=== PATIENT | female | born 1985 | race African-American/Black ===

== ENCOUNTER 2021-02-01 11:36 | Inpatient (IN) | payer BC ==
[~2021-02-01] VITALS: Ht 172.7 cm; Wt 91.4 kg
[2021-02-01] VITALS (33 sets, daily range): BP systolic 90–157; BP diastolic 40–89; PULSE 63–100; TEMP 97.6–97.7
[2021-02-01] MEDS ORDERED: PRENATAL TABLET PO (14:47)
[2021-02-01] MEDS ORDERED: VALTREX1 GM PO (14:47)
[2021-02-01 15:23] LABS: BASO % 0.4 % (0.0-2.0); EOS % 0.4 % (0-4.0); GRAN # 3.7 K/mm3 (1.4-6.5); GRAN % 69.3 % (42.2-75.2); LYMPH # 1.1 K/mm3 (1.2-3.4); LYMPH % 21.3 % (20.0-51.0); MEAN CELL VOLUME 84 fl (80.0-100.0); MEAN CORPUSCULAR HEMOGLOBIN 29 pg (27.0-31.0); MEAN CORPUSCULAR HGB CONC 34 g/dl (33.0-37.0); MONO # 0.4 K/mm3 (0.1-0.6); MONO % 8.2 % (1.7-9.3); PLATELET COUNT 264 K/mm3 (130-400); RED BLOOD COUNT 4.54 M/mm3 (4.10-5.30); REDCELL DISTRIBUTION WIDTH-CV 13.6 % (11.5-14.5)
--- NOTE | 2021-02-01 16:00 | NUR ---
T 1530: PT. UP TO BR. COUPLING CTX NOTED
--- NOTE | 2021-02-01 17:43 | NUR ---
EPIDURAL: 162: JANIS MARTINEZ CRNA CALLED FOR EPIDURAL. BOLUS GOING. 163: Eloisa MARTINEZ AT BS. PT. MOVED TO SIDE OF BED, SITTING UP RIGHT FOR PLACEMENT 163: TO COMPLETED 163: SS DOSE GIVEN PT. TOLERATED PROCEDURE WELL. NO ADVERSE REACTIONS. WILL CONT. TO MONITOR AT THIS TIME
--- NOTE | 2021-02-01 17:47 | NUR ---
ADMIT NOTE (7236): PT. AMBULATORY TO UNIT WITH SPOUSE FOR IOL FOR POST DATES PER DR. SPAIN. PT. ORIENTED TO LR3, CLEAN GOWN ON, EFM/TOCO APPLIED, VITAL SIGNS OBTAINED, ASSESSMENTS COMPETED, CONSENTS SIGNED. IV PLACED AND FLUIDS AND PITOCIN RUNNING PER PROTOCOL. SVE PERFORMED, NO SIGNS OF ACTIVE LESIONS ANYWHERE. QUESTIONS INVITED AND ANSWERED. WILL CONT. TO MONITOR PT
--- NOTE | 2021-02-01 20:46 | NUR ---
2199: DR. SPAIN TO BS TO PERFORM SVE. SVE UNCHANGED. DR. SPAIN DISCUSSING POC W/ PT AND SPOUSE. PT. AGREEABLE TO C/S AT THIS TIME. PROLONGED DECELERATION THEN OCCURED (SEE FHT NOTE). BACK UP TO BASELINE AFTER POSITION CHANGES AND THIS RN AND AMANDEEP Galvan RN GETTING PT. READY TO ROLL BACK TO OR. 2208: IN OR. PT. PLACED ON OR TABLE, SCDS PLACED, SAFETY STRAP ON, ARMBOARDS PLACED BILATERALLY. FHT 145-150BMP IN OR. BELLY THEN PREPPED BY THIS RN. DR. SPAIN ENTERS OR AND IS DRAPED. TO IS COMPLETED AT 2015 AND EVERYONE AGREEABLE. C/S BEGINS. BABY BORN 2021, CORD CLAMPED AND CUT. DR. SPAIN SHOWED TO MOM AND GIVEN TO NURSERY AT READY WARMER. CLOSING BEGINS AND PT. REMAINS IN DR. ZEPEDA'S CARE AT THIS TIME
--- NOTE | 2021-02-01 22:57 | NUR ---
REPORT GIVEN TO KRISTYN PRYOR. CARE RELINQUISEHD AT THIS TIME
[2021-02-02 00:15] VITALS: BP 105/64; PULSE 75; TEMP 97.9
[2021-02-02 05:05] VITALS: BP 99/64; PULSE 77; TEMP 99.8
[2021-02-02 07:45] VITALS: BP 116/63; PULSE 78; TEMP 98.3
[2021-02-02] MEDS ORDERED: IBU600 MG PO (09:32)
[2021-02-02] MEDS ORDERED: ROXICODONE 55 MG/TAB PO (09:32)
[2021-02-02 13:00] VITALS: BP 107/69; PULSE 83; TEMP 98.8
--- NOTE | 2021-02-02 13:04 | NUR ---
PT EDUCATED MULTIPLE TIMES THIS SHIFT ON IMPORTANCE OF PAIN CONTROL TO HELP ENHANCE HEALING PROCESS. PT CONTINUES TO REFUSE PO TYLENOL, MOTRIN OR ANY NARCOTIC. STATES "I ABSOLUTELY HATE TAKING MEDICINE, I NEVER TAKE ANY AT HOME EITHER. HONESTLY, THIS JUST DOESN'T HURT THAT BAD." PT CONTINUES TO AMBULATE IN [place] AND USE ICE PACKS ON INCISION SITE TO HELP WITH PAIN RELIEF. DENIES FURTHER NEEDS AT THIS TIME.
[2021-02-02 17:03] VITALS: BP 113/64; PULSE 77; TEMP 98.2
--- NOTE | 2021-02-02 17:21 | NUR ---
PT EDUCATED ON NEED TO MAINTAIN A Q2-3H FEEDING SCHEDULE FOR , DENIES FURTHER QUESTIONS OR CONCERNS.
[2021-02-02 20:45] VITALS: BP 109/74; PULSE 93; TEMP 98.4
[2021-02-03 08:15] VITALS: BP 102/66; PULSE 88; TEMP 99.3
[2021-02-03 16:59] VITALS: BP 117/80; PULSE 93; TEMP 98.2
[2021-02-03 19:20] VITALS: BP 108/68; PULSE 87; TEMP 98
[2021-02-04 07:22] VITALS: BP 112/75; PULSE 74; TEMP 97.9
== END 2021-02-04 12:20 | disposition home or self-care (01) | DRG 787 ==
LOC: LDR 11:36 → OB 21:45 → LDR 02-02 07:26 → OB 02-04 12:20
PROVIDERS: ADMIT Obstetrics & Gynecology
PROC: 10D00Z1 Extraction of Products of Conception, Low, Open Approach (ICD-10-PCS; principal; 2021-02-01)
DX: O48.0 Post-term pregnancy (principal); O98.32 Other infections with a predominantly sexual mode of transmission complicating childbirth; O76 Abnormality in fetal heart rate and rhythm complicating labor and delivery; A60.00 Herpesviral infection of urogenital system, unspecified; Z37.0 Single live birth; Z3A.41 41 weeks gestation of pregnancy
CPT/HCPCS: J0690; J1100; J1200; J1885; J2405; J2590; J7120

== ENCOUNTER 2022-04-04 17:41 | Day surgery (SDC) | payer BC ==
[2022-04-04] VITALS (9 sets, daily range): BP systolic 95–129; BP diastolic 61–81; PULSE 65–93
[~2022-04-04] VITALS: Ht 172.7 cm; Wt 74.5 kg
[~2022-04-04 17:41] MED LIST: IBU600 MG PO; PRENATAL TABLET PO; ROXICODONE 55 MG/TAB PO; VALTREX1 GM PO
--- NOTE | 2022-04-04 18:35 | NUR ---
Dr Harvey into room, discusses events of the day and plan of care. Dr Harvey inspects POC pt brought in. "placenta appears intact and attached to cord. I don't think we need to go to the OR." Decision made to take pt to a L&D room and do speculum exam and proceed as indicated at that point. Pt and spouse agree. 1840 To LR6 per wheelchair.
--- NOTE | 2022-04-04 19:05 | NUR ---
Speculum exam by Dr Harvey, "protco swabs' used to clear blood and clotty tissue, Dr Harvey requests and starts using banjo currette. Pt becoming increasingly more uncomfortable, having to close eyes focus and deep breathe. This RN asks if pt can receive something for pain. 191 Stadol [address] Harvey resumes with currette. Methergine 0.2mg to LAT. 0 Pt continues very uncomfortable with procedure. Order received to give additional 1 mg Stadol IV push. Given. 1924 Exam complete, pericare performed. Bed together.
[2022-04-04] MEDS ORDERED: AMOXICILLIN 8751 TAB PO (19:41)
[2022-04-04] MEDS ORDERED: METHERGINE0.2 MG/TAB PO (19:42)
--- NOTE | 2022-04-04 20:00 | NUR ---
Up to bathroom with steady gait, voids good amount, oerforms own oericare.
--- NOTE | 2022-04-04 21:00 | NUR ---
up to bathroom wioth steady gait denies needs.
--- NOTE | 2022-04-04 23:00 | NUR ---
Discharge instructions reviewed with pt and spouse. Questions invited and answered. Off unit by wheelchair accompanied by spouse and this RN.
== END 2022-04-04 23:00 | disposition home or self-care (01) ==
LOC: SDCO 17:41
DX: O03.4 Incomplete spontaneous abortion without complication (principal); Z3A.14 14 weeks gestation of pregnancy; Z28.310 Unvaccinated for COVID-19; Z28.9 Immunization not carried out for unspecified reason
CPT/HCPCS: J0595; J0696; J1885; J2210; J2405; J2704; J3010; J7120

== ENCOUNTER 2023-02-13 12:09 | Inpatient (IN) | payer MEDICAID ==
[~2023-02-13] VITALS: Ht 172.7 cm; Wt 211.0 kg
[~2023-02-13 12:09] MED LIST changes: +AMOXICILLIN 8751 TAB PO; +METHERGINE0.2 MG/TAB PO
[2023-02-17] VITALS (18 sets, daily range): BP systolic 90–127; BP diastolic 55–78; PULSE 69–114; TEMP 97.8–98.5
--- NOTE | 2023-02-17 07:40 | NUR ---
PT AMBULATORY TO UNIT WITH SPOUSE FOR REPEAT C/S, ORIENTED TO ROOM AND PLAN OF CARE. PT REPORTS FEELING IRREGULAR CTX, NO LOF, NO VAGINAL SPOTTING OR BLEEDING, AND POSITIVE MOVEMENT. EFM CAT 1 AND PT VS STABLE. MENTIONED POSSIBLY REMOVING LEFT OVARIAN CYST AFTER C/S, PT NOTIFIED AND AWARE.
[2023-02-17 09:04] LABS: BASO % 0.2 % (0.0-2.0); EOS # 0.1 K/mm3 (0.0-0.7); EOS % 1.5 % (0.0-4.0); GRAN # 3.7 K/mm3 (1.4-6.5); GRAN % 62.5 % (42.2-75.2); HEMATOCRIT 38.1 % (37.0-47.0); HEMOGLOBIN 12.6 g/dl (12.5-16.0); LYMPH # 1.4 K/mm3 (1.2-3.4); LYMPH % 24.2 % (20.0-51.0); MEAN CELL VOLUME 86 fl (80.0-100.0); MEAN CORPUSCULAR HEMOGLOBIN 29 pg (27-31); MEAN CORPUSCULAR HGB CONC 33 g/dl (33.0-37.0); MEAN PLATELET VOLUME 8.9 fl (7.4-10.4); MONO # 0.7 K/mm3 (0.1-0.6); MONO % 10.9 % (1.7-9.3); PLATELET COUNT 235 K/mm3 (130-400); RED BLOOD COUNT 4.42 M/mm3 (4.10-5.30); REDCELL DISTRIBUTION WIDTH-CV 13.9 % (11.5-14.5)
--- NOTE | 2023-02-17 16:50 | NUR ---
PT DESCRIBING FEELING "NUMBNESS AND TINGLING" IN FINGERS AND HANDS AND "FEELS MORE INTENSE IN THE RIGHT HAND." THIS RN AND CHARGE NURSE BRENTON DESCRIBES THAT SPINAL MEDICATIONS CAN CAUSE THIS SENSATION WHEN WEARING OFF, BUT STAFF WILL MONITOR MATERNAL SYMPTOMS CLOSELY. PT WILL NOTIFY NURSES OF ANY OTHER/NEW/ABNORMAL CHANGES. PT GIVEN ICEPACKS TO HELP HANDS.
[2023-02-18 04:00] VITALS: BP 112/66; PULSE 74; TEMP 98.6
[2023-02-18 08:30] VITALS: BP 106/69; PULSE 82; TEMP 97.7
[2023-02-18] MEDS ORDERED: ROXICODONE 55 MG/TAB PO (09:34)
[2023-02-18] MEDS ORDERED: IBU600 MG PO (09:34)
[2023-02-18 20:30] VITALS: BP 122/76; PULSE 76; TEMP 98.1
[2023-02-19 07:03] VITALS: BP 109/80; PULSE 76; TEMP 97.7
--- NOTE | 2023-02-19 09:14 | NUR ---
Initial visit; Patient thanked Cloth Grader Supervisor for looking in on her and offering congratulations and God's blessings for the of her son. Cloth Grader Supervisor thanked Sherie for choosing [facility].
[2023-02-19 16:25] VITALS: BP 110/78; PULSE 72; TEMP 98.2
[2023-02-19 20:00] VITALS: BP 119/79; PULSE 89; TEMP 98.4
[2023-02-20 08:00] VITALS: BP 113/74; PULSE 76; TEMP 98.2
--- NOTE | 2023-02-20 17:52 | NUR ---
PT AND SPOUSE ESCORTED FROM UNIT. PT AMBULATORY TO CAR.
== END 2023-02-20 17:45 | disposition home or self-care (01) | DRG 788 ==
LOC: OB 12:09
PROVIDERS: ADMIT Obstetrics & Gynecology
PROC: 10D00Z1 Extraction of Products of Conception, Low, Open Approach (ICD-10-PCS; principal; 2023-02-17)
PROC: 0UB10ZZ Excision of Left Ovary, Open Approach (ICD-10-PCS; 2023-02-17)
DX: O34.211 Maternal care for low transverse scar from previous cesarean delivery (principal); Z3A.41 41 weeks gestation of pregnancy; Z37.0 Single live birth; K21.9 Gastro-esophageal reflux disease without esophagitis; O99.62 Diseases of the digestive system complicating childbirth; O34.83 Maternal care for other abnormalities of pelvic organs, third trimester; O36.63X0 Maternal care for excessive fetal growth, third trimester, not applicable or unspecified; O69.81X0 Labor and delivery complicated by cord around neck, without compression, not applicable or unspecified; D27.1 Benign neoplasm of left ovary
CPT/HCPCS: J0171; J0665; J0690; J1100; J1885; J2371; J2405; J2590